=== PATIENT | female | born 1955 | race Caucasian/White ===

== ENCOUNTER → 2023-10-20 10:38 | Outpatient (REF) | payer MEDICARE, SELFPAY | LOC: HWRAD 10:38 | PROVIDERS: ATTENDING PHYSICIAN Internal Medicine | DX: M81.0 Age-related osteoporosis without current pathological fracture (principal) | CPT/HCPCS: 77080 ==

== ENCOUNTER → 2024-04-09 12:24 | Outpatient (REF) | payer MEDICARE, SELFPAY | LOC: HWWDC 12:24 | PROVIDERS: ATTENDING PHYSICIAN Internal Medicine; REFERRING PHYSICIAN Registered Nurse | DX: Z12.39 Encounter for other screening for malignant neoplasm of breast (principal) | CPT/HCPCS: 77063; 77067 ==

== ENCOUNTER → 2025-04-15 14:31 | Outpatient (REF) | payer MEDICARE, SELFPAY | LOC: HWWDC 14:31 | PROVIDERS: ATTENDING PHYSICIAN Internal Medicine | DX: Z12.31 Encounter for screening mammogram for malignant neoplasm of breast (principal) | CPT/HCPCS: 77063; 77067 ==

== ENCOUNTER → 2025-05-29 10:52 | Outpatient (REF) | payer MEDICARE, SELFPAY | LOC: HWRCS 10:52 | PROVIDERS: ATTENDING PHYSICIAN Internal Medicine | DX: R01.1 Cardiac murmur, unspecified (principal) | CPT/HCPCS: 93306 ==